=== PATIENT | female | born 1975 | race Caucasian/White ===

== ENCOUNTER 2024-11-17 23:47 | Emergency (ER) | payer BC ==
[~2024-11-17] VITALS: Ht 149.9 cm; Wt 105.7 kg
[~2024-11-17 23:47] MED LIST: IBUPROFEN600 MG PO; KEFLEX 500 MG PO; KEFLEX125 MG/5 M PO; LEVOTHYROXINE50 MCG PO; SYNTHROID75 MCG PO; Tylenol #3 PO
[2024-11-17 23:53] VITALS: RESP 18; TEMP 98.6
[2024-11-18 00:17] LABS: BASOPHILS % 0.6 % (0.0-1.0); EOSINOPHILS # (AUTO) 0.2 (0.0-0.4); EOSINOPHILS % 2.8 % (0.0-6.0); HEMATOCRIT 41.5 % (34.2-44.1); HEMOGLOBIN 13.8 g/dL (12.0-16.0); LYMPHOCYTES # (AUTO) 1.7 (1.0-3.2); LYMPHOCYTES % 25.1 % (18.0-39.1); MEAN CORPUSCULAR HEMOGLOBIN 30.7 pg (28-32); MEAN CORPUSCULAR HGB CONC 33.3 g/dL (31-35); MEAN CORPUSCULAR VOLUME 92.2 fL (81-99); MONOCYTES # (AUTO) 0.4 (0.2-0.8); MONOCYTES % 5.5 % (4.4-11.3); NEUTROPHILS # (AUTO) 4.5 (2.1-6.9); NEUTROPHILS % 65.7 % (38.7-80.0); PLATELET COUNT 285 x10e3/uL (140-360); RED CELL DISTRIBUTION WIDTH 12.2 % (11.7-14.4); WHITE BLOOD COUNT 6.85 x10e3/uL (4.8-10.8)
[2024-11-18 00:36] LABS: LIPASE 21 U/L (8-78)
[2024-11-18 00:38] LABS: ALBUMIN 3.9 g/dL (3.5-5.0); ALBUMIN/GLOBULIN RATIO 1.1 (0.8-2.0); ANION GAP 16.3 mmol/L (8-16); BILIRUBIN,TOTAL 0.7 mg/dL (0.2-1.2); CALCIUM 9.4 mg/dL (8.4-10.2); CREATININE, SERUM 0.81 mg/dL (0.57-1.11); TOTAL PROTEIN 7.3 g/dL (6.5-8.1)
[2024-11-18 00:41] LABS: POTASSIUM 3.3 mmol/L (3.5-5.1)
[2024-11-18 00:43] LABS: CLARITY,URINE CLOUDY (CLEAR); COLOR,URINE YELLOW (YELLOW); GLUCOSE, URINE NEGATIVE (NEGATIVE); LEUKOCYTE ESTERASE ,URINE TRACE (NEGATIVE); NITRITE,URINE NEGATIVE (NEGATIVE); PH,URINE 6 (5 - 7); PROTEIN,URINE DIPSTICK 1+ (NEGATIVE)
[2024-11-18 00:44] LABS: BILIRUBIN,URINE NEGATIVE (NEGATIVE); KETONES,URINE NEGATIVE (NEGATIVE); URINE UROBILINOGEN 0.2 mg/dL (0.2 - 1)
[2024-11-18 00:44] LABS: TROPONIN I < 0.001 ng/mL (0-0.300)
[2024-11-18 00:57] LABS: AMORPHOUS SEDIMENT,URINE FEW; BACTERIA,URINE MANY /HPF; EPITHELIAL CELLS,URINE MANY /LPF; MUCUS,URINE FEW; RBC,URINE >50 /HPF (0-5); RENAL EPITHELIAL CELLS,URINE FEW; WBC,URINE (MAN) 21-50 /HPF (0-5)
[2024-11-18] MEDS: ONDANSETRON HCL INJ 2MG/ML 2ML 2 MG/ML VIAL IV STA (01:05)
[2024-11-18 01:27] VITALS: PULSE 72
[2024-11-18] MEDS ORDERED: PANTOPRAZOLE SO40 MG PO (01:35)
[2024-11-18] MEDS ORDERED: ONDANSETRON ODT4 MG SL (01:35)
[2024-11-18] MEDS ORDERED: CEFDINIR300 MG PO (01:35)
[2024-11-18 01:51] VITALS: BP 126/63; O2SAT 97
== END 2024-11-18 01:53 | disposition home or self-care (01) ==
LOC: ER 11-18 00:39
DX: R10.10 Upper abdominal pain, unspecified (principal); K29.70 Gastritis, unspecified, without bleeding; N39.0 Urinary tract infection, site not specified; E03.9 Hypothyroidism, unspecified; K86.9 Disease of pancreas, unspecified; R94.31 Abnormal electrocardiogram [ECG] [EKG]
CPT/HCPCS: 36415; 80053; 81001; 83690; 84484; 85025; 93005; 99284; J2405; J2470